=== PATIENT | female | born 1995 | race Caucasian/White ===

== ENCOUNTER 2017-11-10 15:40 | Inpatient (IN) | payer OTHER ==
[2017-11-10 16:59] LABS: HEMATOCRIT 34.9 % (36.0-47.0); HEMOGLOBIN 11.4 g/dl (12.0-15.5); MEAN CORPUSCULAR HEMOGLOBIN 27.8 pg (27.0-33.0); MEAN CORPUSCULAR HGB CONC 32.7 g/dl (32.0-36.5); MEAN CORPUSCULAR VOLUME 85.1 fl (80.0-96.0); PLATELET COUNT, AUTOMATED 287 10^3/uL (150-450); RED CELL DISTRIBUTION WIDTH 14.6 % (11.5-14.5); WHITE BLOOD COUNT 8.8 10^3/uL (4.0-10.0)
[2017-11-10 17:19] LABS: ALBUMIN 2.1 GM/DL (3.2-5.2); ALBUMIN/GLOBULIN RATIO 0.48 (1.00-1.93); ALKALINE PHOSPHATASE 508 U/L (45-117); ALT/SGPT 34 U/L (12-78); ANION GAP 11 MEQ/L (8-16); AST/SGOT 53 U/L (7-37); BILIRUBIN,TOTAL 0.3 MG/DL (0.2-1.0); BLOOD UREA NITROGEN 18 MG/DL (7-18); CALCIUM LEVEL 8.6 MG/DL (8.5-10.1); CARBON DIOXIDE LEVEL 19 MEQ/L (21-32); CHLORIDE LEVEL 109 MEQ/L (98-107); CREATININE FOR GFR 1.01 MG/DL (0.55-1.30); GLUCOSE, FASTING 70 MG/DL (70-100); POTASSIUM SERUM 4.6 MEQ/L (3.5-5.1); SODIUM LEVEL 139 MEQ/L (136-145); TOTAL PROTEIN 6.5 GM/DL (6.4-8.2)
[2017-11-10 17:24] LABS: TOTAL PROTEIN,RANDOM URINE 783.6 MG/DL (0.0-12.0)
[2017-11-10] MEDS: CALCIUM CARBONATE 500 MG CHEW U/D PO (17:45)
[2017-11-10] MEDS: LACTATED RINGER'S 1000 ML IV (18:06)
[2017-11-10] MEDS: PENICILLIN G POTASSIUM IV 5 MU in D5W MINI-BAG PLUS 100 ML IV (18:07)
[2017-11-10] MEDS: OXYTOCIN DRIP 30 UNITS in APPROPRIATE DILUENT 1 EA IV (18:13)
[2017-11-10] MEDS: LR 1,000 ML IV (18:18)
[2017-11-10] MEDS ORDERED: ONDANSETRON 4MG/2ML VIAL (J2405) As Ordered (19:21)
[2017-11-10] MEDS: ONDANSETRON 4MG/2ML VIAL (J2405) IV (20:00)
[2017-11-10] MEDS: ACETAMINOPHEN 500 MG TAB PO (20:19)
[2017-11-10] MEDS ORDERED: FENTANYL 2MCG/ML ROPIVACAINE 0.2% IN 0.9% NACL 200ML IVBAG As Ordered (21:54)
[2017-11-10] MEDS: PENICILLIN G POTASSIUM IV 2.5 MU in APPROPRIATE DILUENT 1 EA IV (22:50)
[2017-11-10] MEDS ORDERED: ONDANSETRON 4MG/2ML VIAL (J2405) IV (23:00)
[2017-11-10] MEDS ORDERED: REFRIGERATOR IV KEYS XX (23:00)
[2017-11-10] MEDS ORDERED: ePHEDrine SULFATE 25 MG/5 ML(5MG/ML) SYRINGE IV (23:00)
[2017-11-10] MEDS ORDERED: FENTANYL/ROPIVACAINE/NACL BAG 200 ML EPIDURAL (23:00)
[2017-11-10] MEDS ORDERED: NALOXONE INJ 0.4 MG/1 ML VIAL (J2310) IV (23:00)
[2017-11-10] MEDS ORDERED: EPIDURAL COMMENT XX (23:00)
[2017-11-10] MEDS ORDERED: EPIDURAL/PCA KEYS XX (23:00)
[2017-11-10] MEDS ORDERED: LACTATED RINGER'S 1000 ML IV (23:00)
[2017-11-10] MEDS ORDERED: diphenhydrAMINE INJ 50MG/ML VIAL (J1200) IV (23:00)
[2017-11-11] MEDS ORDERED: CALCIUM CARBONATE 500 MG CHEW U/D PO (00:30)
[2017-11-11] MEDS: LR 1,000 ML IV (01:40)
[2017-11-11] MEDS ORDERED: ACETAMINOPHEN 500 MG TAB PO (03:45)
[2017-11-11] MEDS ORDERED: ONDANSETRON 4MG/2ML VIAL (J2405) IV (03:45)
[2017-11-11] MEDS ORDERED: MOM 30ML SUSPENSION UDC PO (03:45)
[2017-11-11] MEDS ORDERED: PROMETHAZINE 25 MG TAB PO (03:45)
[2017-11-11] MEDS ORDERED: DOCUSATE SODIUM 100 MG CAP PO (03:45)
[2017-11-11] MEDS ORDERED: RHOGAM 300 MCG (1500 IU) INJ (J2790) IM (03:45)
[2017-11-11] MEDS ORDERED: DIBUCAINE 1% OINTMENT 30GM TOP (03:45)
[2017-11-11] MEDS ORDERED: MEASLES,MUMPS,RUBELLA VACCINE INJ (MMR-II) (90707) SC (03:45)
[2017-11-11] MEDS: IBUPROFEN 800 MG TAB PO (05:13)
[2017-11-11] MEDS: PRENATAL VITAMINS CHEWABLE TABLET PO (07:34)
[2017-11-11] MEDS: ACETAMINOPHEN 500 MG TAB PO (16:45)
[2017-11-12] MEDS: IBUPROFEN 800 MG TAB PO ×2 (07:53→17:42)
[2017-11-12] MEDS: PRENATAL VITAMINS CHEWABLE TABLET PO (07:53)
[2017-11-13] MEDS: PRENATAL VITAMINS CHEWABLE TABLET PO (10:10)
[2017-11-13] MEDS: IBUPROFEN 800 MG TAB PO (10:11)
== END 2017-11-13 11:51 | disposition home or self-care (01) | DRG 775 ==
LOC: M LDI 15:40 → M OBS 11-11 05:49
PROVIDERS: Student in an Organized Health Care Education/Training Program
PROC: 3E033VJ Introduction of Other Hormone into Peripheral Vein, Percutaneous Approach (ICD-10-PCS; 2017-11-10)
PROC: 10E0XZZ Delivery of Products of Conception, External Approach (ICD-10-PCS; principal; 2017-11-11)
PROC: 0HQ9XZZ Repair Perineum Skin, External Approach (ICD-10-PCS; 2017-11-11)
DX: O14.04 Mild to moderate pre-eclampsia, complicating childbirth (principal); Z37.0 Single live birth; O48.0 Post-term pregnancy; Z3A.40 40 weeks gestation of pregnancy; O13.4 Gestational [pregnancy-induced] hypertension without significant proteinuria, complicating childbirth; O99.824 Streptococcus B carrier state complicating childbirth

== ENCOUNTER 2017-11-15 12:36 | Inpatient (IN) | payer OTHER ==
[2017-11-15] MEDS ORDERED: LR 1,000 ML IV (12:54)
[2017-11-15] MEDS ORDERED: CALCIUM GLUCONATE 1,000 MG in D5W MINI-BAG PLUS 100 ML IV (13:00)
[2017-11-15] MEDS: LABETALOL 200 MG TAB PO ×2 (13:25→21:34)
[2017-11-15] MEDS: MAG Sulf (L&D) 4 GM/100 ML 4 GM in APPROPRIATE DILUENT 1 EA IV (13:25)
[2017-11-15] MEDS: MAG Sulf (OBGYN) 20GM/500ML 20,000 MG in APPROPRIATE DILUENT 1 EA IV ×2 (13:33→22:52)
[2017-11-16 02:01] LABS: MAGNESIUM LEVEL 8.2 MG/DL (1.8-2.4)
[2017-11-16] MEDS: LABETALOL 200 MG TAB PO ×2 (06:18→14:06)
[2017-11-16 06:42] LABS: HEMATOCRIT 29.3 % (36.0-47.0); HEMOGLOBIN 9.2 g/dl (12.0-15.5); MEAN CORPUSCULAR HEMOGLOBIN 27.5 pg (27.0-33.0); MEAN CORPUSCULAR HGB CONC 31.4 g/dl (32.0-36.5); MEAN CORPUSCULAR VOLUME 87.5 fl (80.0-96.0); PLATELET COUNT, AUTOMATED 391 10^3/uL (150-450); RED BLOOD COUNT 3.35 10^6/uL (4.00-5.40); RED CELL DISTRIBUTION WIDTH 16.7 % (11.5-14.5); WHITE BLOOD COUNT 9.6 10^3/uL (4.0-10.0)
[2017-11-16 07:15] LABS: ALT/SGPT 94 U/L (12-78); AST/SGOT 90 U/L (7-37); BILIRUBIN,TOTAL 0.2 MG/DL (0.2-1.0); LDH LACTATE DEHYDROGENASE 323 U/L (84-246)
[2017-11-16] MEDS: MAG Sulf (OBGYN) 20GM/500ML 20,000 MG in APPROPRIATE DILUENT 1 EA IV (10:03)
== END 2017-11-16 17:55 | disposition home or self-care (01) | DRG 776 ==
LOC: M LDI 12:36 → M OBS 16:18
PROVIDERS: Obstetrics & Gynecology
DX: O14.95 Unspecified pre-eclampsia, complicating the puerperium (principal); Z91.048 Other nonmedicinal substance allergy status; Z79.899 Other long term (current) drug therapy

== ENCOUNTER → 2017-11-15 | Outpatient (CLI) | payer OTHER ==
[2017-11-15 11:45] LABS: HEMATOCRIT 31.6 % (36.0-47.0); HEMOGLOBIN 9.7 g/dl (12.0-15.5); MEAN CORPUSCULAR HEMOGLOBIN 27.6 pg (27.0-33.0); MEAN CORPUSCULAR HGB CONC 30.7 g/dl (32.0-36.5); MEAN CORPUSCULAR VOLUME 89.8 fl (80.0-96.0); PLATELET COUNT, AUTOMATED 432 10^3/uL (150-450); RED BLOOD COUNT 3.52 10^6/uL (4.00-5.40); RED CELL DISTRIBUTION WIDTH 16.2 % (11.5-14.5); WHITE BLOOD COUNT 11.1 10^3/uL (4.0-10.0)
[2017-11-15 12:03] LABS: ALT/SGPT 101 U/L (12-78); AST/SGOT 117 U/L (7-37); BILIRUBIN,TOTAL 0.2 MG/DL (0.2-1.0); CREATININE FOR GFR 1.02 MG/DL (0.55-1.30); LDH LACTATE DEHYDROGENASE 311 U/L (84-246); URIC ACID 7.3 MG/DL (2.6-6.0)
== END ==
LOC: M LAB 11:10
DX: I10 Essential (primary) hypertension (principal)